=== PATIENT | female | born 1940 | race Caucasian/White ===

== ENCOUNTER 2020-09-12 16:50 | Inpatient (IN) | payer OTHER ==
[~2020-09-12] VITALS: Ht 162.6 cm; Wt 89.7 kg
[2020-09-12 17:31] LABS: Basophils # (auto) 0.1 10 ^3/uL (0-0.2); Basophils % (auto) 0.5 % (0.0-2.0); Eosinophils # (auto) 0.1 10 ^3/uL (0-0.8); Eosinophils % (auto) 1.1 % (0.0-7.0); Hematocrit 38.3 % (36.0-46.0); Hemoglobin 12.6 g/dL (12.2-16.2); Lymphocytes # (auto) 1.6 10 ^3/uL (0.4-5.4); Lymphocytes % (auto) 16.4 % (10.0-50.0); Mean Corpuscular Hemoglobin 28.2 pg (28.0-32.0); Mean Corpuscular Hgb Conc. 32.9 g/dL (32.0-36.0); Mean Corpuscular Volume 85.6 fL (80.0-100.0); Monocytes # (auto) 0.5 10 ^3/uL (0-1.3); Monocytes % (auto) 5.4 % (0.0-12.0); Neutrophils # (auto) 7.7 10 ^3/uL (1.6-8.6); Neutrophils % (auto) 76.6 % (37.0-80.0); Nucleated Red Blood Cells % 0.1 %; Platelet Count (auto) 190 10^3/uL (140-450); Red Blood Cells 4.48 10^6/uL (4.0-5.20); Red Cell Distribution Width 15.7 % (11.8-14.3)
[2020-09-12 17:46] LABS: Albumin 3.4 g/dL (3.4-5.0); Anion Gap 7 (5-15); BUN/Creatinine Ratio 30.4; Blood Urea Nitrogen 24 mg/dL (7-18); Calcium 8.2 mg/dL (8.5-10.1); Carbon Dioxide 24 mmol/L (21-32); Chloride 109 mmol/L (98-107); GFR African American 90 mL/min; GFR Non-African American 74 mL/min; Glucose 148 mg/dL (74-106); Potassium 4.1 mmol/L (3.5-5.1); Sodium 140 mmol/L (136-145)
[2020-09-12 17:53] LABS: Alanine Aminotransferase 34 U/L (13-56); Alkaline Phosphatase 66 U/L (45-117); Aspartate Aminotransferase 42 U/L (15-37); Bilirubin, Total 0.2 mg/dL (0.2-1.0); Total Protein 6.5 g/dL (6.4-8.2)
[2020-09-12] MEDS ORDERED: ONDANSETRON HCL 4 MG/2 ML VIAL IV PRN (21:15)
[2020-09-12] MEDS ORDERED: NITROGLYCERIN 0.4 MG SL TAB SL PRN (21:15)
[2020-09-12] MEDS ORDERED: ACETAMINOPHEN 325 MG TAB PO PRN (21:15)
[2020-09-12] MEDS ORDERED: MORPHINE SULF INJ 2 MG/ML SYRINGE 1ML IV PRN ×2 (21:15)
[2020-09-12] MEDS ORDERED: TEMAZEPAM 15 MG CAP PO PRN (22:00)
[2020-09-12] MEDS ORDERED: FAMOTIDINE 20 MG TAB PO SCH (22:00)
[2020-09-12] MEDS: ATORVASTATIN 20 MG TAB PO SCH (22:51)
[2020-09-12] MEDS: CARVEDILOL 3.125 MG TAB PO SCH (22:53)
[2020-09-13] VITALS (7 sets, daily range): BP systolic 119–151; BP diastolic 51–98
[2020-09-13] MEDS: HYDROcodone-ACET 5/325MG TAB PO PRN ×3 (03:58→22:30)
[2020-09-13] MEDS: CARVEDILOL 3.125 MG TAB PO SCH ×2 (09:31→21:30)
[2020-09-13] MEDS ORDERED: LOSARTAN POTASSIUM 50 MG TAB PO SCH (10:00)
[2020-09-13] MEDS ORDERED: FAMOTIDINE 20 MG TAB PO SCH (10:00)
[2020-09-13] MEDS ORDERED: ENOXAPARIN SOD 40 MG/0.4 ML SYRINGE SC SCH (10:00)
[2020-09-13] MEDS ORDERED: SIMV-8 PO (13:33)
[2020-09-13] MEDS ORDERED: CARV6.2551 PO (13:33)
[2020-09-13] MEDS ORDERED: LOSA25TA38 PO (13:33)
[2020-09-13] MEDS: ATORVASTATIN 20 MG TAB PO SCH (21:49)
== END 2020-09-13 22:55 | disposition home health service (06) | DRG 605 ==
LOC: EDBD 16:50 → ER 16:50 → TELE 16:51 → ER 19:09 → TELE-CENTR 23:26
PROVIDERS: ADMIT Nurse Practitioner; ATTEND Nurse Practitioner
DX: S20.212A Contusion of left front wall of thorax, initial encounter (principal); R55 Syncope and collapse; I10 Essential (primary) hypertension; E78.5 Hyperlipidemia, unspecified; Z82.49 Family history of ischemic heart disease and other diseases of the circulatory system; Z20.822 Contact with and (suspected) exposure to COVID-19; Z90.49 Acquired absence of other specified parts of digestive tract; V49.50XA Passenger injured in collision with unspecified motor vehicles in traffic accident, initial encounter; Y92.410 Unspecified street and highway as the place of occurrence of the external cause; N83.8 Other noninflammatory disorders of ovary, fallopian tube and broad ligament
CPT/HCPCS: 36415; 70450; 70551; 71045; 71250; 72125; 72128; 72131; 74176; 80053; 84443; 84484; 85025; 87426; 93005; 93306; 93886; 95819; G0378